=== PATIENT | female | born 1995 | race African-American/Black ===

== ENCOUNTER 2018-09-22 16:11 | Inpatient (IN) ==
[2018-09-22] MEDS ORDERED: METHOCARBAMOL 500 MG TABLET PO PRN (17:07)
[2018-09-22] MEDS ORDERED: NICOTINE 21 MG/24 HR PATCH TRANSDERM PRN (17:07)
[2018-09-22] MEDS ORDERED: hydrOXYzine HCL 25 MG/1 ML VIAL IM PRN (17:07)
[2018-09-22] MEDS ORDERED: SENNA 8.6 MG TABLET PO PRN (17:07)
[2018-09-22] MEDS ORDERED: HydrOXYzine PAMOATE 25 MG CAPSULE PO PRN (17:07)
[2018-09-22] MEDS ORDERED: ACETAMINOPHEN 500 MG TABLET PO PRN (17:07)
[2018-09-22] MEDS ORDERED: ALUMINUM/MAGNES/SIMETH MAX STR 30 ML UDCUP PO PRN (17:07)
[2018-09-22] MEDS ORDERED: THIAMINE INJ 100 MG, FOLIC ACID INJ 1 MG, MULTIVITAMIN INJ 10 ML in SODIUM CHLORIDE 0.9... IV ONE (17:07)
[2018-09-22] MEDS ORDERED: traZODone 50 MG TABLET PO PRN (17:07)
[2018-09-22] MEDS ORDERED: rOPINIRole 1 MG TABLET PO PRN (17:07)
[2018-09-22] MEDS ORDERED: ONDANSETRON 4 MG/2 ML VIAL IV PRN (17:07)
[2018-09-22] MEDS: cloNIDine 0.1 MG TABLET PO SCH ×2 (18:14→21:59)
[2018-09-22 18:28] LABS: Basophils % 0.3 % (0.0-0.8); Eosinophils # 0.2 10*3/uL (0.0-0.87); Eosinophils % 2.8 % (0.00-10.9); Hematocrit 33.4 VOL% (35.7-47.0); Hemoglobin 10.8 GM/DL (12.0-16.0); Immature Granulocytes % 0.6 %; Immature Granulocytes Absolute 0.04 #; Lymphocytes # 2.6 10*3/uL (1.4-4.0); Mean Corpuscular HGB Conc 32.3 GM/DL (32-36); Mean Corpuscular Hemoglobin 32 PG (27-34); Mean Corpuscular Volume 97.7 FL (87-102); Mean Platelet Volume 10.6 FL (9.6-12.0); Monocytes # 0.4 10*3/uL (0.11-0.8); Monocytes % 5.9 % (1.7-12.7); Neutrophils # 3.8 10*3/uL (1.4-7.4); Neutrophils % 53.4 % (38.7-73.9); Platelet Count 282 T/CUMM (130-400); Red Blood Count 3.42 MC/CUMM (3.8-5.5); Red Cell Distribution Width 13.1 % (9.3-17.3); White Blood Count 7.1 T/CUMM (4-12)
[2018-09-22 18:36] LABS: INR 0.9; PT Patient Result 9.7 SECS
[2018-09-22 18:49] LABS: Alanine Aminotransferase 19 U/L (13-56); Albumin 2.7 G/DL (3.4-5.0); Alkaline Phosphatase 112 U/L (45-117); Amylase 42 U/L (25-115); Aspartate Amino Transferase 12 U/L (0-37); Blood Urea Nitrogen 10 MG/DL (7-18); Calcium 8.3 MG/DL (8.5-10.1); Glucose 82 MG/DL (74-106); Osmolality,Calculated 280.1 MOS/KG (273-304); Potassium 3.3 MMOL/L (3.5-5.1); Sodium 142 MMOL/L (136-145); Total Protein 6.9 G/DL (6.4-8.3)
[2018-09-22] MEDS: LORazepam 1 MG TABLET PO SCH ×2 (18:55→22:00)
[2018-09-22] MEDS: POTASSIUM CHLORIDE 20 MEQ TABLET PO SCH ×2 (18:58→23:11)
[2018-09-22 21:35] LABS: Apearance,Urine Slightly Hazy (Clear); Bilirubin,Urine Negative (Negative); Blood, Urine Large mg/dL (Negative); Glucose,Urine (UA) Negative (Negative); Ketones,Urine Negative (Negative); Mucus,Urine Many /LPF (Occasional); Nitrite,Urine Negative (Negative); Protein,Urine Negative; RBC,Urine 34 /HPF (0-4); Squamous Epithelial Cell,Urine Occasional /HPF (0-10); Urine Color Yellow (Yellow); Urine Specific Gravity 1.027 (1.001-1.035); WBC,Urine 5 /HPF (0-6)
[2018-09-22 21:43] LABS: Barbiturates Screen,Urine Negative (Negative); Benzodiazepines Screen,Urine Negative (Negative); Cannabinoid Screen,Urine Positive (Negative); Opiate Screen,Urine Negative (Negative); Phencyclidine Screen,Urine Negative (Negative)
[2018-09-23] MEDS: cloNIDine 0.1 MG TABLET PO SCH ×6 (01:06→21:36)
[2018-09-23] MEDS: LORazepam 1 MG TABLET PO SCH ×6 (01:12→23:33)
[2018-09-23 03:37] LABS: Potassium 3.6 MMOL/L (3.5-5.1)
[2018-09-23] MEDS: POTASSIUM CHLORIDE 20 MEQ TABLET PO SCH ×2 (03:37→06:45)
[2018-09-23] MEDS: MULTIVITAMIN (CENTRUM) TABLET PO SCH (09:13)
[2018-09-23] MEDS: THIAMINE 100 MG TABLET PO SCH (09:13)
[2018-09-23] MEDS: FOLIC ACID 1 MG TABLET PO SCH (09:13)
[2018-09-24] MEDS: cloNIDine 0.1 MG TABLET PO SCH ×6 (02:37→22:37)
[2018-09-24] MEDS: LORazepam 1 MG TABLET PO SCH ×3 (05:30→18:21)
[2018-09-24] MEDS: MULTIVITAMIN (CENTRUM) TABLET PO SCH (09:50)
[2018-09-24] MEDS: FOLIC ACID 1 MG TABLET PO SCH (09:50)
[2018-09-24] MEDS: THIAMINE 100 MG TABLET PO SCH (09:50)
[2018-09-25] MEDS: LORazepam 1 MG TABLET PO SCH ×2 (01:16→10:07)
[2018-09-25] MEDS: cloNIDine 0.1 MG TABLET PO SCH ×3 (01:34→10:08)
[2018-09-25] MEDS: FOLIC ACID 1 MG TABLET PO SCH (10:07)
[2018-09-25] MEDS: MULTIVITAMIN (CENTRUM) TABLET PO SCH (10:07)
[2018-09-25] MEDS: THIAMINE 100 MG TABLET PO SCH (10:08)
[2018-09-25 10:20] VITALS: BP 124/69
== END 2018-09-25 11:55 | disposition home or self-care (01) | DRG 774 ==
LOC: SUATTDRO 16:57 → N.4E 16:57
PROVIDERS: ADMIT Internal Medicine; ATTEND Internal Medicine Geriatric Medicine

== ENCOUNTER 2020-11-18 06:05 | Inpatient (IN) ==
[2020-11-18] MEDS ORDERED: ONDANSETRON 4 MG/2 ML VIAL IV PRN ×2 (06:48→12:26)
[2020-11-18] MEDS ORDERED: MEPERIDINE 50 MG/1 ML VIAL IV PRN (06:48)
[2020-11-18] MEDS ORDERED: BUTORPHANOL 2 MG/ML VIAL IV PRN (06:48)
[2020-11-18] MEDS ORDERED: OXYTOCIN/LR 20 UNIT/1,000 ML BAG IV SCH (07:00)
[2020-11-18] MEDS ORDERED: LACTATED RINGERS 1,000 ML IV SCH (07:00)
[2020-11-18 07:16] LABS: Basophils % 0.3 % (0.0-0.8); Eosinophils # 0.2 10*3/uL (0.0-0.87); Eosinophils % 1.7 % (0.00-10.9); Hematocrit 31.9 VOL% (35.7-47.0); Hemoglobin 10.9 GM/DL (12.0-16.0); Immature Granulocytes % 1.7 %; Lymphocytes # 2.8 10*3/uL (1.4-4.0); Lymphocytes % 23.5 % (21.3-54.2); Mean Corpuscular HGB Conc 34.2 GM/DL (32-36); Mean Corpuscular Volume 96.1 FL (87-102); Mean Platelet Volume 10.3 FL (9.6-12.0); Monocytes % 8.5 % (1.7-12.7); Neutrophils % 64.3 % (38.7-73.9); Platelet Count 175 T/CUMM (130-400); Red Blood Count 3.32 MC/CUMM (3.8-5.5); Red Cell Distribution Width 13.2 % (9.3-17.3); White Blood Count 11.9 T/CUMM (4-12)
[2020-11-18] MEDS ORDERED: INFLUENZA VIRUS VACCINE 0.5 ML SYRINGE IM ONE (07:30)
[2020-11-18 07:44] LABS: Albumin 2.6 G/DL (3.4-5.0); Bilirubin,Total 0.8 MG/DL (0.2-1.0); Calcium 8.5 MG/DL (8.5-10.1); Osmolality,Calculated 269.8 MOS/KG (273-304); Potassium 3.9 MMOL/L (3.5-5.1); Total Protein 6.7 G/DL (5.0-7.5)
[2020-11-18] MEDS ORDERED: ePHEDrine 50 MG/ML VIAL IV PRN (09:32)
[2020-11-18] MEDS ORDERED: diphenhydrAMINE 50 MG/1 ML VIAL IV PRN ×2 (09:32)
[2020-11-18] MEDS ORDERED: CITRIC ACID/SODIUM CITRATE 30 ML UDCUP PO ONE (09:32)
[2020-11-18] MEDS ORDERED: FAMOTIDINE 20 MG/2 ML VIAL IV ONE (09:32)
[2020-11-18] MEDS ORDERED: NALOXONE 0.4 MG/ML VIAL IV PRN (09:32)
[2020-11-18] MEDS ORDERED: LACTATED RINGERS 1,000 ML IV ONE (09:32)
[2020-11-18] MEDS ORDERED: CARBOPROST TROMETHAMINE 250 MCG/ML AMP IM ONE (09:55)
[2020-11-18] MEDS ORDERED: METHYLERGONOVINE 0.2 MG/1 ML AMP ONE (09:55)
[2020-11-18] MEDS ORDERED: TRANEXAMIC ACID 1,000 MG/10 ML VIAL ONE (09:55)
[2020-11-18] MEDS ORDERED: miSOPROStoL 200 MCG TABLET ONE (09:55)
[2020-11-18] MEDS ORDERED: SODIUM CHLORIDE 0.9% 0 ML IV ONE (09:56)
[2020-11-18] MEDS ORDERED: fentaNYL 2 MCG/ROPIV 0.2% EPID 100 ML EPIDURAL SCH (10:00)
[2020-11-18 11:37] LABS: Bilirubin,Urine Negative (Negative); Blood, Urine Negative (Negative); Glucose,Urine (UA) Negative (Negative); Ketones,Urine Negative (Negative); Mucus,Urine Occasional /LPF (Occasional); Nitrite,Urine Negative (Negative); Protein,Urine Negative; RBC,Urine 1 /HPF (0-4); Urine Appearance CLEAR (Clear); Urine Color Straw (Yellow); Urine Specific Gravity 1.008 (1.001-1.035); Urine Urobilinogen < 2.0 EU/DL (0.2-1.0)
[2020-11-18] MEDS ORDERED: DIPH/TET/ACEL PERT BOOSTER VACCINE 0.5 ML VIAL IM ONE (12:26)
[2020-11-18] MEDS ORDERED: LANOLIN 50% CREAM 0.3 OZ TUBE TOP PRN (12:26)
[2020-11-18] MEDS ORDERED: HYDROCORTISONE 2.5% RECTAL CREAM 30 GM TUBE TOP PRN (12:26)
[2020-11-18] MEDS ORDERED: ACETAMINOPHEN 325 MG TABLET PO PRN (12:26)
[2020-11-18] MEDS ORDERED: MEASLES/MUMPS/RUBELLA VACCINE 0.5 ML VIAL SUBCUT ONE (12:26)
[2020-11-18] MEDS ORDERED: WITCH HAZEL PADS 100/JAR TOP PRN (12:26)
[2020-11-18] MEDS ORDERED: BENZOCAINE 20%/MENTHOL 0.5% SPRAY 56 GM CAN TOP PRN (12:26)
[2020-11-18] MEDS ORDERED: OXYTOCIN/LR 20 UNIT/1,000 ML BAG IV ONE (12:26)
[2020-11-18] MEDS ORDERED: BISACODYL 10 MG SUPP RECTAL PRN (12:26)
[2020-11-18 12:33] LABS: Cord Arterial Blood HCO3 17.4 MMOL/L
[2020-11-18 12:36] LABS: Cord Venous Blood HCO3 20.9 MMOL/L; Cord Venous Blood PCO2 43.5 MMHG; Cord Venous Blood PO2 31.1
[2020-11-18 12:54] LABS: Barbiturates Screen,Urine Negative (Negative); Benzodiazepines Screen,Urine Negative (Negative); Cannabinoid Screen,Urine Negative (Negative); Opiate Screen,Urine Negative (Negative); Phencyclidine Screen,Urine Negative (Negative)
[2020-11-18] MEDS: ACETAMINOPHEN/CODEINE 300-30 MG TABLET PO PRN (16:02)
[2020-11-18] MEDS: IBUPROFEN 800 MG TABLET PO PRN (19:32)
[2020-11-19] MEDS: IBUPROFEN 800 MG TABLET PO PRN ×3 (02:30→20:59)
[2020-11-19] MEDS: ACETAMINOPHEN/CODEINE 300-30 MG TABLET PO PRN (04:08)
[2020-11-19 06:32] LABS: Basophils % 0.2 % (0.0-0.8); Eosinophils # 0.2 10*3/uL (0.0-0.87); Eosinophils % 1.2 % (0.00-10.9); Hematocrit 30.4 VOL% (35.7-47.0); Hemoglobin 10.2 GM/DL (12.0-16.0); Immature Granulocytes % 1.2 %; Immature Granulocytes Absolute 0.17 #; Lymphocytes # 2.9 10*3/uL (1.4-4.0); Lymphocytes % 21.1 % (21.3-54.2); Mean Corpuscular HGB Conc 33.6 GM/DL (32-36); Mean Corpuscular Volume 95.3 FL (87-102); Mean Platelet Volume 10.7 FL (9.6-12.0); Monocytes % 8.2 % (1.7-12.7); Neutrophils % 68.1 % (38.7-73.9); Platelet Count 165 T/CUMM (130-400); Red Blood Count 3.19 MC/CUMM (3.8-5.5); Red Cell Distribution Width 13.2 % (9.3-17.3); White Blood Count 13.9 T/CUMM (4-12)
[2020-11-19] MEDS ORDERED: INFLUENZA VIRUS VACCINE 0.5 ML SYRINGE IM ONE (09:00)
[2020-11-19] MEDS: DOCUSATE SODIUM 100 MG CAPSULE PO SCH ×2 (09:48→20:59)
[2020-11-19] MEDS: FERROUS SULFATE 325 MG TABLET PO SCH (09:49)
[2020-11-19] MEDS: MULTIVITAMIN (PRENATAL) TABLET PO SCH (09:49)
[2020-11-20] MEDS ORDERED: INFLUENZA VIRUS VACCINE 0.5 ML SYRINGE IM ONE (07:58)
[2020-11-20] MEDS: DOCUSATE SODIUM 100 MG CAPSULE PO SCH (08:16)
[2020-11-20] MEDS: FERROUS SULFATE 325 MG TABLET PO SCH (08:16)
[2020-11-20] MEDS: MULTIVITAMIN (PRENATAL) TABLET PO SCH (08:17)
[2020-11-20] MEDS: IBUPROFEN 800 MG TABLET PO PRN (08:17)
[2020-11-20 11:18] VITALS: BP 94/66
== END 2020-11-20 12:45 | disposition home or self-care (01) | DRG 560 ==
LOC: N.LD 06:05 → N.OB 15:48
PROVIDERS: ADMIT Obstetrics & Gynecology; ATTEND Obstetrics & Gynecology